=== PATIENT | female | born 1945 | race Caucasian/White ===

== ENCOUNTER 2019-06-03 12:55 | Inpatient (IN) ==
[2019-06-03] MEDS ORDERED: HYDROcodone BIT/Homatropine 5 MG TABLET PO PRN (17:11)
[2019-06-03] MEDS ORDERED: hydrOXYzine pamoate 25 MG CAPSULE PO PRN (17:11)
[2019-06-03] MEDS: traMADol 50 MG TABLET PO PRN ×2 (17:47→23:08)
--- NOTE | 2019-06-03 18:55 | Internal Med History&Physical ---
Date of Encounter: 06/03/19 Time of Encounter: 18:25 Assessment and Plan (1) Status post total right knee replacement Current visit: No Status: Acute PT and OT evaluations have been ordered. She will be given Lovenox for DVT prophylaxis. (2) Mitral valve prolapse Current visit: Yes Status: Acute Continue propranolol. (3) Cirrhosis Current visit: Yes Status: Chronic Continue lactulose. Qualifiers: Hepatic cirrhosis type: unspecified hepatic cirrhosis Ascites presence: without ascites Qualified Code(s): K74.60 - Unspecified cirrhosis of liver (4) Anemia Current visit: Yes Status: Acute Anemia testing will be done in a.m. Qualifiers: Anemia type: unspecified type Qualified Code(s): D64.9 - Anemia, unspecified (5) Thrombocytopenia Current visit: Yes Status: Acute Monitor platelet level. Internal Medicine - H&P: HPI Chief complaint: Right TKR Admitted From: Hospital to Hospital Transfer Plans for Post Hospital Care: Home History of present illness: Ms. Porter is a 73 year old female who was transferred [facility] swing bed after hospitalization at [facility] May 28 for right robotic assisted TKR. Her postop course was complicated by hepatic encephalopathy. She was started on lactulose. There were no other complications and she was discharged to swing bed for ongoing care needs prior to returning to independent living at home[place] [facility] [place] significant for left TKR 2015. She has DJD but denies gout or other bone joint or muscle disorders. Past Med Surg Social Fam HX - Past Medical History Medical history: hyperlipidemia, hypertension Additional medical history: cirrhosis of the liver, restless leg, nerve stimulator, Irregular Heart Beat, Stomach Ulcer, Rheumatoid Arthritis, Anemia, Artificial Joints, Cataracts Psychiatric history: no psych history - Past Surgical History Surgical History: appendectomy, , cholecystectomy, hysterectomy, knee replacement Additional surgical history: stimulator implant,stomach tumor removed,bladder - Social History Smoking Status: Never smoker Smokeless Tobacco Status: No Alcohol use: none Drug use: none - Family History Father Hx Family Cardiac Disorders: Yes Internal Medicine - H&P: Meds Aspirin Enteric Coated [Aspirin EC] 325 mg PO BID #20 tablet. 05/28/19 [Rx] Esomeprazole Magnesium [Nexium] 40 mg PO DAILY 05/28/19 [History] Gabapentin [Neurontin] 900 mg PO HS 05/28/19 [History] Propranolol HCl 40 mg PO BID 05/28/19 [History] Trimethoprim 100 mg PO DAILY 05/28/19 [History] hydrOXYzine pamoate [Hydroxyzine Pamoate] 25 mg PO TID PRN 05/28/19 [History] HYDROcodone BIT/Homatropine [Hycodan] 5 mg PO Q6HR PRN 5 Days #20 tablet 06/03/19 [Rx] Lactulose 20 gm PO TID 7 Days #420 udc 06/03/19 [Rx] Ondansetron ODT [Zofran ODT] 4 mg SL Q6H PRN tab.rapdis 06/03/19 [Rx] Polyethylene Glycol 3350 [MiraLAX] 17 gm PO DAILY #0 powd.pack 06/03/19 [Rx] Tramadol HCl [Ultram] 50 mg PO QID PRN 5 Days #20 tab 06/03/19 [Rx] Allergy/AdvReac Type Severity Reaction Status Date / Time cephalexin [From Keflex] Allergy Mild Difficulty Verified 05/28/19 20:53 Breathing fish oil Allergy Difficulty Verified 05/28/19 20:53 Breathing iodine Allergy Difficulty Verified 05/28/19 20:53 Breathing nitrofurantoin Allergy See Verified 05/28/19 20:53 [From Macrobid] Comments Penicillins Allergy Hives Verified 05/28/19 20:53 Sulfa (Sulfonamide Allergy Hives Verified 05/28/19 20:53 Antibiotics) aspirin AdvReac Confusion Verified 05/28/19 20:53 All Systems PM: A 10-system review of systems was performed and is negative for pertinent findings except as documented above in the HPI. Review of systems: Gen.: She states her weight has been stable for several months Cardiovascular: She has history of mitral prolapse. 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 She developed hepatic encephalopathy during her recent [facility] stay and was treated with lactulose. She denies other disorders of her liver or exocrine pancreas. She is status post cholecystectomy. : She reports urinary incontinence following bladder injury from previous surgery. She denies other kidney or bladder disorders. Neurologic: She denies large distribution strokes or seizures. Endocrine: She has hyperlipidemia but denies diabetes or thyroid disease Hematology/oncology: She developed anemia postoperatively. She denies other blood disorders or internal malignancies. Psychiatric: She denies anxiety depression or other mental health issues. - Constitutional Vitals: Temp Pulse Resp BP Pulse Ox 98.6 F 87 17 133/76 96 06/03/19 18:51 06/03/19 18:51 06/03/19 18:51 06/03/19 18:51 06/03/19 18:51 Exam: Gen.: She is a well-developed well-nourished female lying in bed who appears in no acute distress at present time HEENT: Head is atraumatic and normocephalic. Eyes: EOMI. There is no scleral icterus. Mouth: Mucosa is moist. Neck: Supple and nontender. There is no thyromegaly or adenopathy noted. Heart: Regular a 2-3/6 systolic murmur heard at the left sternal border and the base. S1 and S2 are soft. No ectopics are heard. Lungs: No wheezes or crackles are heard. Abdomen: Soft and nontender. No masses or guarding are noted. Extremities: There is no cyanosis or clubbing noted. She has 1+ edema of the dorsum of the feet and lower legs bilaterally. A honeycomb foam with overlying dressing is in place over the right knee surgical incision area. Dorsalis pedis and posterior tibial pulses are trace palpable bilaterally. Neurologic: Mental status: She is talkative and a good historian. Cranial nerves: Smile is symmetric. Forehead wrinkles bilaterally. Tongue protrudes midline. EOMI. Motor: There is no pronator drift. Cerebellar: Fair to nose is intact bilaterally. Skin: Warm and dry
[2019-06-03] MEDS: Gabapentin 300 MG CAPSULE PO SCH (20:13)
[2019-06-03] MEDS: Lactulose Oral Soln 20 GM/30 ML UDC PO SCH (20:13)
[2019-06-03] MEDS ORDERED: Aspirin Enteric Coated 325 MG Tablet PO SCH (21:00)
[2019-06-04] MEDS: traMADol 50 MG TABLET PO PRN ×4 (02:58→18:32)
[2019-06-04] MEDS: *HR* Enoxaparin 40 MG/0.4 ML SYRINGE SQ SCH (05:14)
[2019-06-04 06:10] LABS: Basophils % 0.9 %; Eosinophils # 0.5 K/mcL (0.0-0.6); Eosinophils % 14.7 %; Hematocrit 27.6 % (35.3-44.9); Hemoglobin 9.5 g/dL (11.5-15.4); Immature Granulocytes % 0.6 % (0-4); Lymphocytes % 37.7 %; Mean Corpuscular HGB Conc 34.4 g/dL (31.6-35.5); Mean Corpuscular Hemoglobin 32.4 pg (28.0-33.3); Mean Corpuscular Volume 94.2 fL (83.0-100.0); Mean Platelet Volume 9.9 fL (9.4-12.4); Monocytes # 0.3 K/mcL (0.0-1.3); Neutrophils # 1.2 K/mcL (1.6-8.9); Red Blood Count 2.93 M/mcL (3.82-4.97); Red Cell Distribution Width 14.8 % (11.5-14.5); Segmented Neutrophils % 37.1 %; White Blood Count 3.3 K/mcL (4.3-11.1)
[2019-06-04 06:48] LABS: Lymphocytes # 1.2 K/mcL (0.6-4.6); Platelet Count 74 K/mcL (140-400)
[2019-06-04] MEDS: Lactulose Oral Soln 20 GM/30 ML UDC PO SCH ×3 (08:28→21:41)
[2019-06-04 09:04] LABS: % Iron Saturation 50 % (15-50); Iron 116 mcg/dL (50-170); Transferrin 167 mg/dL (203-362)
[2019-06-04 09:19] LABS: Ferritin 58 ng/mL (10-120)
[2019-06-04 09:42] LABS: Folate > 22.3 ng/mL (3.0-16.0); Vitamin B12 1111 pg/mL (250-1100)
--- NOTE | 2019-06-04 09:43 | Internal Med Progress Note ---
Date of Encounter: 06/04/19 Time of Encounter: 09:35 - Assessment and plan (1) Status post total right knee replacement Current Visit: No Status: Acute Assessment and plan: June 04. Continue PT, OT, and Lovenox (2) Mitral valve prolapse Current Visit: Yes Status: Acute Assessment and plan: June 04. Continue propranolol (3) Cirrhosis Current Visit: Yes Status: Chronic Assessment and plan: June 04. Continue lactulose Qualifiers: Hepatic cirrhosis type: unspecified hepatic cirrhosis Ascites presence: without ascites Qualified Code(s): K74.60 - Unspecified cirrhosis of liver (4) Anemia Current Visit: Yes Status: Acute Assessment and plan: June 04. Anemia testing ordered. Hemoglobin improved to 9.5 today. Qualifiers: Anemia type: unspecified type Qualified Code(s): D64.9 - Anemia, unspecif ied (5) Thrombocytopenia Current Visit: Yes Status: Acute Assessment and plan: June 04. Platelet count stable at 74 K - Subjective Interval history: June 04. She has no new complaints. - Constitutional Vitals: Temp Pulse Resp BP Pulse Ox 98.4 F 63 18 142/73 94 06/04/19 07:52 06/04/19 07:52 06/04/19 07:52 06/04/19 07:52 06/04/19 07:52 Exam: She is resting comfortably in bed and appears in no acute distress. Her affect is bright and cheerful. She has trace to 1+ edema of the right lower leg and trace edema of the left lower leg. I reviewed her medications and lab results. Internal Medicine: Result - Labs CBC & Chem 7: 06/04/19 05:59 Labs: Short CBC 06/04/19 Range/Units 05:59 WBC 3.3 L (4.3-11.1) K/mcL Hgb 9.5 L (11.5-15.4) g/dL Hct 27.6 L (35.3-44.9) % Plt Count 74 L (140-400) K/mcL Neutrophils # 1.2 L (1.6-8.9) K/mcL Consult Discharge Plan - Plan Referrals: NONE,PCP [Primary Care Provider] - 1 week
[2019-06-04] MEDS: Ondansetron ODT 4 MG TAB.RAPDIS SL PRN (12:29)
[2019-06-04] MEDS: Gabapentin 300 MG CAPSULE PO SCH (21:41)
[2019-06-05] MEDS: traMADol 50 MG TABLET PO PRN ×4 (01:37→19:49)
[2019-06-05] MEDS: *HR* Enoxaparin 40 MG/0.4 ML SYRINGE SQ SCH (06:26)
[2019-06-05] MEDS: Lactulose Oral Soln 20 GM/30 ML UDC PO SCH ×3 (08:45→19:50)
[2019-06-05] MEDS: Gabapentin 300 MG CAPSULE PO SCH (19:48)
[2019-06-06] MEDS: traMADol 50 MG TABLET PO PRN ×3 (02:16→21:40)
[2019-06-06] MEDS: *HR* Enoxaparin 40 MG/0.4 ML SYRINGE SQ SCH (06:34)
[2019-06-06] MEDS: Lactulose Oral Soln 20 GM/30 ML UDC PO SCH ×3 (08:04→21:39)
[2019-06-06] MEDS: Ondansetron ODT 4 MG TAB.RAPDIS SL PRN (17:49)
[2019-06-06] MEDS: Gabapentin 300 MG CAPSULE PO SCH (21:40)
[2019-06-07] MEDS: traMADol 50 MG TABLET PO PRN ×3 (03:14→21:38)
[2019-06-07] MEDS: *HR* Enoxaparin 40 MG/0.4 ML SYRINGE SQ SCH (06:35)
[2019-06-07] MEDS: Lactulose Oral Soln 20 GM/30 ML UDC PO SCH ×3 (09:09→21:39)
--- NOTE | 2019-06-07 16:33 | Internal Med Progress Note ---
Date of Encounter: 06/07/19 Time of Encounter: 16:25 - Assessment and plan (1) Status post total right knee replacement Current Visit: No Status: Acute Assessment and plan: June 04. Continue PT, OT, and Lovenox (2) Mitral valve prolapse Current Visit: Yes Status: Acute Assessment and plan: June 04. Continue propranolol (3) Cirrhosis Current Visit: Yes Status: Chronic Assessment and plan: June 04. Continue lactulose Qualifiers: Hepatic cirrhosis type: unspecified hepatic cirrhosis Ascites presence: without ascites Qualified Code(s): K74.60 - Unspecified cirrhosis of liver (4) Anemia Current Visit: Yes Status: Acute Assessment and plan: June 04. Anemia testing ordered. Hemoglobin improved to 9.5 today. June 07. Anemia testing showed iron 116, transferrin saturation 50%, transferrin 167, ferritin 58, B12 1111, and folate > 22.3. Recheck CBC in a.m. Qualifiers: Anemia type: unspecified type Qualified Code(s): D64.9 - Anemia, unspecified (5) Thrombocytopenia Current Visit: Yes Status: Acute Assessment and plan: June 04. Platelet count stable at 74 K June 07. Recheck labs in a.m. - Subjective Interval history: June 04. She has no new complaints. June 07. She has no new complaints. - Constitutional Vitals: Temp Pulse Resp BP Pulse Ox 97.8 F 59 16 118/60 96 06/07/19 07:55 06/07/19 14:26 06/07/19 07:55 06/07/19 07:55 06/07/19 07:55 Exam: She is resting comfortably in bed and appears in no acute distress. Her affect is bright and cheerful. I reviewed her medications and lab results. Internal Medicine: Result - Labs CBC & Chem 7: 06/04/19 05:59 Consult Discharge Plan - Plan Referrals: NONE,PCP [Primary Care Provider] - 1 week
[2019-06-07] MEDS: Gabapentin 300 MG CAPSULE PO SCH (21:38)
[2019-06-08] MEDS: traMADol 50 MG TABLET PO PRN ×3 (03:49→20:56)
[2019-06-08] MEDS: *HR* Enoxaparin 40 MG/0.4 ML SYRINGE SQ SCH (03:50)
[2019-06-08 07:42] LABS: Basophils # 0.1 K/mcL (0.0-0.2); Basophils % 1.3 %; Eosinophils # 0.6 K/mcL (0.0-0.6); Eosinophils % 14.7 %; Hematocrit 29.8 % (35.3-44.9); Hemoglobin 10.2 g/dL (11.5-15.4); Immature Granulocytes % 0.5 % (0-4); Lymphocytes # 1.5 K/mcL (0.6-4.6); Lymphocytes % 38.1 %; Mean Corpuscular HGB Conc 34.2 g/dL (31.6-35.5); Mean Corpuscular Hemoglobin 33.1 pg (28.0-33.3); Mean Corpuscular Volume 96.8 fL (83.0-100.0); Mean Platelet Volume 11.3 fL (9.4-12.4); Monocytes # 0.3 K/mcL (0.0-1.3); Monocytes % 8.4 %; Neutrophils # 1.4 K/mcL (1.6-8.9); Red Blood Count 3.08 M/mcL (3.82-4.97); Red Cell Distribution Width 15.7 % (11.5-14.5); White Blood Count 3.8 K/mcL (4.3-11.1)
[2019-06-08 08:16] LABS: Platelet Count 88 K/mcL (140-400)
[2019-06-08 08:27] LABS: BUN/Creatinine Ratio 12 (6-26); Blood Urea Nitrogen 8 mg/dL (8-23); Calcium 8.7 mg/dL (8.6-10.3); Carbon Dioxide 30 mEq/L (23-29); Chloride 105 mEq/L (98-107); Glucose 91 mg/dL (70-105); Osmolality,Calculated 288 (280-300); Potassium 4.6 mEq/L (3.5-5.1); Sodium 140 mEq/L (136-145); eGFR For African Americans > 60 (> 60); eGFR For Non-African Americans > 60 (> 60)
[2019-06-08] MEDS: Lactulose Oral Soln 20 GM/30 ML UDC PO SCH ×3 (08:38→20:57)
[2019-06-08] MEDS: Gabapentin 300 MG CAPSULE PO SCH (20:57)
[2019-06-09] MEDS ORDERED: *HR* OxyCODONE/APAP 5/325 TABLET PO ONE (00:20)
[2019-06-09] MEDS: *HR* Enoxaparin 40 MG/0.4 ML SYRINGE SQ SCH (03:51)
[2019-06-09] MEDS: Lactulose Oral Soln 20 GM/30 ML UDC PO SCH ×3 (09:08→21:21)
[2019-06-09] MEDS: traMADol 50 MG TABLET PO PRN ×2 (11:24→18:26)
[2019-06-09] MEDS: Gabapentin 300 MG CAPSULE PO SCH (21:21)
[2019-06-10] MEDS: *HR* Enoxaparin 40 MG/0.4 ML SYRINGE SQ SCH (06:18)
[2019-06-10] MEDS: Lactulose Oral Soln 20 GM/30 ML UDC PO SCH ×2 (09:11→15:12)
--- NOTE | 2019-06-10 15:02 | Internal Med Progress Note ---
Date of Encounter: 06/10/19 Time of Encounter: 14:55 - Assessment and plan (1) Status post total right knee replacement Current Visit: No Status: Acute Assessment and plan: June 04. Continue PT, OT, and Lovenox (2) Mitral valve prolapse Current Visit: Yes Status: Acute Assessment and plan: June 04. Continue propranolol (3) Cirrhosis Current Visit: Yes Status: Chronic Assessment and plan: June 04. Continue lactulose June 10. Ammonia level has increased to 115. She does not wish to take lactulose. Start rifaximin. Qualifiers: Hepatic cirrhosis type: unspecified hepatic cirrhosis Ascites presence: without ascites Qualified Code(s): K74.60 - Unspecified cirrhosis of liver (4) Anemia Current Visit: Yes Status: Acute Assessment and plan: June 04. Anemia testing ordered. Hemoglobin improved to 9.5 today. June 07. Anemia testing showed iron 116, transferrin saturation 50%, transferrin 167, ferritin 58, B12 1111, and folate > 22.3. Recheck CBC in a.m. June 10. Hemoglobin improved to 10.2. Continue to monitor. Qualifiers: Anemia type: unspecified type Qualified Code(s): D64.9 - Anemia, unspecified (5) Thrombocytopenia Current Visit: Yes Status: Acute Assessment and plan: June 04. Platelet count stable at 74 K June 07. Recheck labs in a.m. June 10. Platelet count stable at 88K. - Subjective Interval history: June 04. She has no new complaints. June 07. She has no new complaints. June 10. She has no new complaints. She has refused lactulose for the past 2 days stating "it tears me up" from excessive diarrhea. - Constitutional Vitals: Temp Pulse Resp BP Pulse Ox 97.6 F 61 18 149/63 95 06/10/19 07:54 06/10/19 07:54 06/10/19 07:54 06/10/19 07:54 06/10/19 07:54 Exam: She is resting after probably in bed and appears in no acute distress. Right knee incision shows no significant drainage visualized on the honeycomb jonathani ng. Her mentation and response times are slow. I reviewed her medications and lab results. Internal Medicine: Result - Labs CBC & Chem 7: 06/08/19 07:33 06/08/19 07:33 Consult Discharge Plan - Plan Referrals: NONE,PCP [Primary Care Provider] - 1 week
[2019-06-10] MEDS: traMADol 50 MG TABLET PO PRN (19:53)
[2019-06-10] MEDS: Gabapentin 300 MG CAPSULE PO SCH (19:53)
[2019-06-11] MEDS: *HR* Enoxaparin 40 MG/0.4 ML SYRINGE SQ SCH (05:38)
[2019-06-11 06:51] VITALS: BP 139/63
--- NOTE | 2019-06-11 12:28 | Discharge Summary ---
Date of Encounter: 06/11/19 Time of Encounter: 12:18 - Discharge Diagnosis (1) Status post total right knee replacement Priority: Primary Status: Acute (2) Mitral valve prolapse Priority: Secondary Status: Acute (3) Cirrhosis Priority: Secondary Status: Chronic Qualifiers: Hepatic cirrhosis type: unspecified hepatic cirrhosis Ascites presence: without ascites Qualified Code(s): K74.60 - Unspecified cirrhosis of liver (4) Anemia Priority: Secondary Status: Acute Qualifiers: Anemia type: unspecified type Qualified Code(s): D64.9 - Anemia, unspecified (5) Thrombocytopenia Priority: Secondary Status: Chronic Hospital course: Ms. Porter is a 73 year old female who was transferred [facility] swing bed after hospitalization at [facility] May 28 for right robotic assisted TKR. Her postop course was complicated by hepatic encephalopathy. She was started on lactulose. There were no other complications and she was discharged to swing bed for ongoing care needs prior to returning to independent living at home. Initial orders were written by the discharging physicians at [facility]. I saw her on June 03 and performed the swing bed history and physical. She had physical therapy and occupational therapy evaluation with ongoing intervention. Lovenox was used for DVT prophylaxis. She made satisfactory progress in therapy. She was stable for discharge home on June 11. She will have home health services ordered to continue in-home therapy. She was ordered lactulose by discharging physicians at [facility] for hepatic encephalopathy secondary to cirrhosis. She refused to take this after a few doses because of excessive diarrhea. Ammonia level was 115 on 06/10/2019. She was started on rifaximin and a 7 day prescription for this was given at discharge. Her PCP can monitor and order Rx as needed. She was clinically improved when I saw her June 11. Anemia testing showed iron 116, transferrin saturation 50%, transferrin 167, ferritin 58, B12 1111, and folate > 22.3. Hemoglobin was improved to 10.2 on 06/08/2019. She will follow with her PCP within 1 week. She will follow with her orthopedist as directed. - Time Spent with Patient Total time spent providing and/or coordinating discharge services: - Discharge Medications Prescriptions: New Rifaximin [Xifaxan] 550 mg PO BID #14 tablet Continued Gabapentin [Neurontin] 900 mg PO HS Trimethoprim 100 mg PO DAILY Propranolol HCl 40 mg PO BID hydrOXYzine pamoate [Hydroxyzine Pamoate] 25 mg PO TID PRN PRN Reason: Rash Ondansetron ODT [Zofran ODT] 4 mg SL Q6H PRN tab.rapdis PRN Reason: Nausea And Vomiting Polyethylene Glycol 3350 [MiraLAX] 17 gm PO DAILY #0 powd.pack Discontinued Esomeprazole Magnesium [Nexium] 40 mg PO DAILY Aspirin Enteric Coated [Aspirin EC] 325 mg PO BID #20 tablet. HYDROcodone BIT/Homatropine [Hycodan] 5 mg PO Q6HR PRN 5 Days #20 tablet PRN Reason: Severe Pain Lactulose 20 gm PO TID 7 Days #420 udc Tramadol HCl [Ultram] 50 mg PO QID PRN 5 Days #20 tab PRN Reason: Breakthrough Pain Home Medications: Gabapentin [Neurontin] 900 mg PO HS 05/28/19 [History] Propranolol HCl 40 mg PO BID 05/28/19 [History] Trimethoprim 100 mg PO DAILY 05/28/19 [History] hydrOXYzine pamoate [Hydroxyzine Pamoate] 25 mg PO TID PRN 05/28/19 [History] Ondansetron ODT [Zofran ODT] 4 mg SL Q6H PRN tab.rapdis 06/03/19 [Rx] Polyethylene Glycol 3350 [MiraLAX] 17 gm PO DAILY #0 powd.pack 06/03/19 [Rx] Rifaximin [Xifaxan] 550 mg PO BID #14 tablet 06/11/19 [Rx] Allergies/Adverse Reactions: Allergy/AdvReac Type Severity Reaction Status Date / Time cephalexin [From Keflex] Allergy Mild Difficulty Verified 05/28/19 20:53 Breathing fish oil Allergy Difficulty Verified 05/28/19 20:53 Breathing iodine Allergy Difficulty Verified 05/28/19 20:53 Breathing nitrofurantoin Allergy See Verified 05/28/19 20:53 [From Macrobid] Comments Penicillins Allergy Hives Verified 05/28/19 20:53 Sulfa (Sulfonamide Allergy Hives Verified 05/28/19 20:53 Antibiotics) aspirin AdvReac Confusion Verified 05/28/19 20:53 Date of admission: 06/03/19 16:09 Primary care physician: PCP NONE Consults: 06/03/19 17:14 Consult to Occupational Therapy [CONS] Routine Comment: Eval and treat Reason for Consult: RTKR Does patient have active BEDREST order?: No Is patient medically & hemodynamically stable?: Yes Patient assessed for mobility or mobilized this visit?: Yes Consult to Physical Therapy [CONS] Routine Comment: Eval and treat Reason for Consult: S/P RTK Does patient have active BEDREST order?: No Is patient medically & hemodynamically stable?: Yes Patient assessed for mobility or mobilized this visit?: Yes 06/03/19 17:55 Consult to Corporate Relations Director [CONS] Routine Reason for SW Consult: discharge planning - Constitutional Vitals: Temp Pulse Resp BP Pulse Ox 98.2 F 60 16 139/63 97 06/11/19 06:47 06/11/19 06:47 06/11/19 06:47 06/11/19 06:47 06/11/19 06:47 - Patient Status Disposition: Home Health Service - Discharge Instructions Follow Up With: Doreen Toledo MD [Non-Partnered Physician] - 1 week - Diet and Activity Activity: as per physical therapy Diet: advance to your usual diet
--- NOTE | 2019-06-11 12:38 | Physician Discharge Referral ---
Home Health/Hosp Referral Info Transfer to: Home Health Attending Provider: Ernesto Provider in Charge Post Discharge: PCP - Diagnosis (1) Status post total right knee replacement Priority: Primary Status: Acute (2) Mitral valve prolapse Priority: Secondary Status: Acute (3) Cirrhosis Priority: Secondary Status: Chronic (4) Anemia Priority: Secondary Status: Acute (5) Thrombocytopenia Priority: Secondary Status: Chronic - Respiratory Orders Smoking Cessation: Smoking cessation has been advised. For more information, call the [place] Tobacco Quit Line at 8-545-ASTE-NOW. - Diet/Nutrition Diet/Nutrition Orders: Regular - Activity Activity Orders: Walker - Services Needed Following services are medically necessary services: Nursing, Home Health Aide, Physical Therapy, Occupational Therapy - Transfer Medications Prescriptions: Rifaximin [Xifaxan] 550 mg PO BID #14 tablet Home Medications: Gabapentin [Neurontin] 900 mg PO HS 05/28/19 [History] Propranolol HCl 40 mg PO BID 05/28/19 [History] Trimethoprim 100 mg PO DAILY 05/28/19 [History] hydrOXYzine pamoate [Hydroxyzine Pamoate] 25 mg PO TID PRN 05/28/19 [History] Ondansetron ODT [Zofran ODT] 4 mg SL Q6H PRN tab.rapdis 06/03/19 [Rx] Polyethylene Glycol 3350 [MiraLAX] 17 gm PO DAILY #0 powd.pack 06/03/19 [Rx] Rifaximin [Xifaxan] 550 mg PO BID #14 tablet 06/11/19 [Rx] Allergies/Adverse Reactions: Allergy/AdvReac Type Severity Reaction Status Date / Time cephalexin [From Keflex] Allergy Mild Difficulty Verified 05/28/19 20:53 Breathing fish oil Allergy Difficulty Verified 05/28/19 20:53 Breathing iodine Allergy Difficulty Verified 05/28/19 20:53 Breathing nitrofurantoin Allergy See Verified 05/28/19 20:53 [From Macrobid] Comments Penicillins Allergy Hives Verified 05/28/19 20:53 Sulfa (Sulfonamide Allergy Hives Verified 05/28/19 20:53 Antibiotics) aspirin AdvReac Confusion Verified 05/28/19 20:53 cheese AdvReac Vomiting Verified 06/11/19 12:33 Certification: Further, I certify that my clinical findings support that this patient is homebound (i.e. absences from home require considerable and taxing effort and are for medical reasons or jainism services or infrequently or short duration when for other reasons) because: Homebound Reason: Leaving home requires considerable and taxing effort due to condition (Impaired walking ability secondary to total knee replacement.) Attestation: My signature below is to certify that this patient is under my care and that I, or nurse practitioner, or a physician's clinical laboratory assistant working with me, has a [id number] encounter with this patient.
== END 2019-06-11 15:40 | disposition home health service (06) | DRG 561 ==
LOC: INPPIK 16:09
PROVIDERS: ADMIT Internal Medicine; ATTEND Internal Medicine